=== PATIENT | female | born 1995 | race Hispanic/Latino ===

== ENCOUNTER 2017-10-11 11:08 | Emergency (ER) | payer SELFPAY, OTHER ==
[2017-10-11 12:57] LABS: Urine Blood TRACE (NEG); Urine Glucose NEGATIVE (NEG); Urine Protein NEGATIVE (NEG); Urine Specific Gravity 1.025 (1.005-1.030); Urine pH 6.5 (5.0-7.0)
[2017-10-11 13:00] LABS: Absolute Lymphocytes (CBC) 2.3 K/uL (0.7-4.9); Absolute Monocytes 0.5 K/uL (0.1-1.3); Absolute Neutrophil 4.2 K/uL (1.8-8.0); Basophils % 0.7 % (0-1.3); Eosinophils % 1.3 % (0-4.4); Hematocrit 39.2 % (36.0-45.0); Lymphocytes % 31.8 % (15.3-44.8); MCH 29.9 pg (27.0-35.0); MCV 90.7 fL (80-100); MPV 8.6 fL (7.6-11.3); Monocytes % 7.2 % (3.3-12.3); RBC Red Blood Cell Count 4.33 M/uL (3.86-4.86)
[2017-10-11 13:18] LABS: Bicarbonate 26 mEq/L (21-31); Glucose Level 84 mg/dL (65-120); Potassium 3.5 mEq/L (3.6-5.0); Sodium Level 135 mEq/L (135-145)
[2017-10-11 13:19] LABS: BUN Blood Urea Nitrogen 11 mg/dL (6-20)
--- NOTE | 2017-10-11 15:26 | RAD REPORT ---
EXAM DESCRIPTION: US - Transvaginal OB - 10/11/2017 1:40 pm CLINICAL HISTORY: Vaginal bleeding. COMPARISON: None. FINDINGS: A single gestational sac is seen within the uterus. Mean sac diameter is 8 mm correspondin g to 5 weeks 3 days gestational age. The sac is oblong. No yolk sac or embryo is seen. Both ovaries are normal in size, shape and echotexture with normal blood flow. IMPRESSION: Tyler gestational sac is present in the fundal endometrium. No yolk sac or pole i s seen.This may still represent a normal early IUP, follow-up study would be recommended in 10-12 day s.
--- NOTE | 2017-10-11 15:30 | EDPHYS ---
Physician Documentation [facility] Name: Evy Bahena Age: 21 yrs Sex: Female : 1995 Arrival Date: 10/11/2017 Time: 11:10 Bed 23 Private MD: ED Physician Nir Adler HPI: 10/11 12:47 This 21 yrs old Female presents to ER via Ambulatory with complaints of VAG rn BLEEDING AND CRAMPS;4-10 WKS PG. 12:47 The patient presents to the emergency department with vaginal bleeding. The estimated rn gestational age is 4 weeks. course: care: none. Associated signs and symptoms: Pertinent positives: vaginal bleeding. The patient has not experienced similar symptoms in the past. 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 - Family history:: not pertinent. - Hospitalizations: : No recent hospitalization is reported. ROS: 12:47 Constitutional: Negative for fever, chills, and weight loss, Eyes: Negative for injury, rn pain, redness, and discharge, Neck: Negative for injury, pain, and swelling, Cardiovascular: Negative for chest pain, palpitations, and edema, Respiratory: Negative for shortness of breath, cough, wheezing, and pleuritic chest pain, Abdomen/GI: Negative for nausea, vomiting, diarrhea, and constipation, : + vaginal bleeding MS/Extremity: Negative for injury and deformity, Skin: Negative for injury, rash, and discoloration, Neuro: Negative for headache, weakness, numbness, tingling, and seizure. Exam: 12:47 Constitutional: This is a well developed, well nourished patient who is awake, alert, rn and in no acute distress. Abdomen/GI: Soft, non-tender, with normal bowel sounds. No distension or tympany. No guarding or rebound. No evidence of tenderness throughout. Vital Signs: 11:44 BP 123 / 78; Pulse 79; Resp 18; Temp 97.8; Pulse Ox 99% on R/A; Weight 70.31 kg; Height ph 5 ft. 3 in. (160.02 cm); Pain 7/10; 13:30 BP 113 / 71; Pulse 69; Resp 18; Pulse Ox 99% on R/A; aj1 14:30 BP 117 / 62; Pulse 72; Resp 18; Pulse Ox 99% ; aj1 11:44 Body Mass Index 27.46 (70.31 kg, 160.02 cm) ph MDM: 12:20 Patient medically screened. rn 15:29 Differential diagnosis: ectopic . Data reviewed: vital signs, nurses notes, corn grinder test result(s), radiologic studies, ultrasound, and as a result, I will discharge patient. Counseling: I had a detailed discussion with the patient and/or guardian regarding: the historical points, exam findings, and any diagnostic results supporting the discharge/admit diagnosis, lab results, radiology results, the need for outpatient follow up, to return to the emergency department if symptoms worsen or persist or if there are any questions or concerns that arise at home. Special discussion: I discussed with the patient/guardian in detail that at this point there is no indication for admission to the hospital. It is understood, however, that if the symptoms persist or worsen the patient needs to return immediately for re-evaluation. Based on the history and exam findings, there is no indication for further emergent testing or inpatient evaluation. I discussed with the patient/guardian the need to see the OB Gyne specialist for further evaluation of the symptoms. ED course: Beta 9000, + GS in uterus, but no pole or HR, recommend repeat beta and u/s. . 10/11 12:29 Order name: Quantitative Hcg; Complete Time: 13:51 rn 10/11 12:29 Order name: Abo/rh Typing; Complete Time: 13:51 rn 10/11 12:29 Order name: Basic Metabolic Panel; Complete Time: 13:51 rn 10/11 12:29 Order name: CBC with Diff; Complete Time: 13:51 rn 10/11 12:47 Order name: Urine Dipstick--Ancillary (enter results); Complete Time: 13:51 bd 10/11 12:47 Order name: Urine --Ancillary (enter results); Complete Time: 13:51 bd 10/11 12:29 Order name: Urine Test (obtain specimen); Complete Time: 12:43 rn 10/11 12:29 Order name: IV Saline Lock; Complete Time: 12:54 rn 10/11 12:29 Order name: Labs collected and sent; Complete Time: 12:54 rn 10/11 12:29 Order name: NPO; Complete Time: 12:43 rn 10/11 12:29 Order name: Urine Dipstick-Ancillary (obtain specimen); Complete Time: 12:43 rn 10/11 12:29 Order name: US Transvaginal Ob; Complete Time: 15:29 rn 10/11 14:17 Order name: ABO/RH no charge; Complete Time: 14:32 EDMS Administered Medications: No medications were administered Disposition: 10/11/17 15:30 Discharged to Home. Impression: Other specified abnormal uterine and vaginal bleeding, related conditions, unspecified, first trimester. - Condition is Stable. - Discharge Instructions: Threatened Miscarriage. - Medication Reconciliation Form, Thank You Letter, Antibiotic Education, Prescription Opioid Use, Family Work Release form. - Follow up: Private Physician; When: As needed; Reason: Recheck today's complaints, Re-evaluation by your physician. - Problem is new. - Symptoms have improved. Signatures: Dispatcher [employer] EDMS Nir Adler MD MD rn Calderon, Audri, RN RN aa5 Elidia Luna RN RN ph Corrections: (The following items were deleted from the chart) 15:59 15:30 10/11/2017 15:30 Discharged to Home. Impression: Other specified abnormal uterine aa5 and vaginal bleeding; related conditions, unspecified, first trimester. Condition is Stable. Forms are Medication Reconciliation Form, Thank You Letter, Antibiotic Education, Prescription Opioid Use. Follow up: Private Physician; When: As needed; Reason: Recheck today's complaints, Re-evaluation by your physician. Problem is new. Symptoms have improved. rn
--- NOTE | 2017-10-11 15:30 | ER ---
Nurse's Notes [facility] Name: Evy Bahena Age: 21 yrs Sex: Female : 1995 Arrival Date: 10/11/2017 Time: 11:10 Bed 23 Private MD: Diagnosis: Other specified abnormal uterine and vaginal bleeding; related conditions, unspecified, first trimester Presentation: 10/11 11:42 Presenting complaint: Patient states: " I'm and I've been spotting off and on ph for about a week and I've been cramping for about 2 weeks." Pt denies bleeding today, reports cramps in suprapubic area, LMP 08/25. Transition of care: patient was not received from another setting of care. Onset of symptoms was October 11, 2017. Initial Sepsis Screen: Does the patient meet any 2 criteria? No. Patient's initial sepsis screen is negative. Does the patient have a suspected source of infection? No. Patient's initial sepsis screen is negative. Care prior to arrival: None. 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 - Family history:: not pertinent. - Hospitalizations: : No recent hospitalization is reported. Screenin:22 Abuse screen: Denies threats or abuse. Denies injuries from another. Nutritional aj1 screening: No deficits noted. Tuberculosis screening: No symptoms or risk factors identified. Assessment: 12:22 General: Appears in no apparent distress. uncomfortable, Behavior is calm, cooperative, aj1 appropriate for age. Pain: Complains of pain in suprapubic area Pain does not radiate. Pain currently is 8 out of 10 on a pain scale. Quality of pain is described as crampy, Pain began 2 weeks ago Is intermittent, Alleviated by nothing. Aggravated by nothing. Neuro: Level of Consciousness is awake, alert, obeys commands, Oriented to person, place, time, situation, Speech is normal, Facial symmetry appears normal. Cardiovascular: Patient's skin is warm and dry. Respiratory: Airway is patent Respiratory effort is even, unlabored, Respiratory pattern is regular, symmetrical. GI: Abdomen is non-distended. : Reports vaginal bleeding that is light flow, last week that has now resolved. Patient complains of cramping at this time. EENT: No signs and/or symptoms were reported regarding the EENT system. Derm: No signs and/or symptoms reported regarding the dermatologic system. Skin is pink, warm \\T\\ dry. normal. Musculoskeletal: No signs and/or symptoms reported regarding the musculoskeletal system. Circulation, motion, and sensation intact. 13:30 Reassessment: Patient appears in no apparent distress at this time. No changes from aj1 previously documented assessment. Patient and/or family updated on plan of care and expected duration. Pain level reassessed. Patient is alert, oriented x 3, equal unlabored respirations, skin warm/dry/pink. 14:30 Reassessment: Patient appears in no apparent distress at this time. No changes from aj1 previously documented assessment. Patient and/or family updated on plan of care and expected duration. Pain level reassessed. Patient is alert, oriented x 3, equal unlabored respirations, skin warm/dry/pink. 15:55 Reassessment: Patient is alert, oriented x 3, equal unlabored respirations, skin aa5 warm/dry/pink. Vital Signs: 11:44 BP 123 / 78; Pulse 79; Resp 18; Temp 97.8; Pulse Ox 99% on R/A; Weight 70.31 kg; Height ph 5 ft. 3 in. (160.02 cm); Pain 7/10; 13:30 BP 113 / 71; Pulse 69; Resp 18; Pulse Ox 99% on R/A; aj1 14:30 BP 117 / 62; Pulse 72; Resp 18; Pulse Ox 99% ; aj1 11:44 Body Mass Index 27.46 (70.31 kg, 160.02 cm) ph ED Course: 11:10 Patient arrived in ED. sb2 11:44 Triage completed. ph 11:45 Arm band placed on. ph 12:19 Nir Adler MD is Attending Physician. rn 12:19 Bc Bone PA is PHCP. cp 12:20 Bc Mcconnell MD is Attending Physician. cp 12:20 Attending Physician role handed off by Bc Mcconnell MD rn 12:20 Nir Adler MD is Attending Physician. rn 12:22 Thelma Dodge RN is Primary Nurse. aj1 12:22 Patient has correct armband on for positive identification. Bed in low position. Call aj1 light in reach. Side rails up X 1. 12:22 No provider procedures requiring assistance completed. aj1 12:55 Inserted saline lock: 20 gauge in right antecubital area, using aseptic technique. aj1 Blood collected. 13:40 US Transvaginal Ob In Process Unspecified. EDMS 13:43 Ultrasound completed. Patient tolerated well. hr 14:45 Report given to YINA Barriga. aj1 15:55 IV discontinued, intact, bleeding controlled, No redness/swelling at site. Pressure aa5 dressing applied. Administered Medications: No medications were administered Outcome: 15:30 Discharge ordered by MD. rn 15:55 Discharged to home ambulatory, with significant other. aa5 15:55 Condition: stable 15:55 Discharge instructions given to patient, significant other, Instructed on discharge instructions, follow up and referral plans. Demonstrated understanding of instructions, follow-up care. 15:59 Patient left the ED. aa5 Signatures: Dispatcher [employer] EDMS Thelma Dodge, RN RN aj1 Kaylyn Matias hr Nir Adler MD MD rn Calderon, Audri, RN RN aa5 Elidia Luna RN RN Bc Aleman, PA PA cp Addie Nicole sb2
== END 2017-10-11 15:59 | disposition home or self-care (01) ==
LOC: ER 11:08
DX: O46.91 Antepartum hemorrhage, unspecified, first trimester (principal); Z3A.01 Less than 8 weeks gestation of pregnancy
CPT/HCPCS: 36415; 76817; 80048; 81003; 81025; 84702; 85025; 86900; 86901; 99283

== ENCOUNTER 2018-08-21 06:37 | Emergency (ER) | payer OTHER, SELFPAY ==
--- OUTSIDE RECORDS SUMMARY | 2018-08-21 06:40 | XMS REPORT ---
:1995 Author Organization [employer] Care Team Providers Name Role Phone Mary Segura Provider Role Unavailable Allergies No Known Allergies Problems Problem Type Condition Code Onset Dates Condition Status Problem Vagina bleeding N93.9 Active Medications No Known Medications Results No Known Results Summary Purpose [employer] Submission
--- OUTSIDE RECORDS SUMMARY | 2018-08-21 06:40 | XMS REPORT ---
:1995 Author Organization [employer] Care Team Providers Name Role Phone Mary Segura Provider Role Unavailable Allergies, Adverse Reactions, Alerts Substance Reaction Event Type N.K.D.A. Info Not Available Non Drug Allergy Problems Problem Type Condition Code Onset Dates Condition Status Problem Encounter to determine O36.80X0 Active viability of , single or unspecified fetus Problem Vagina bleeding N93.9 Active Problem Possible , not confirmed Z32.00 Active Assessment Encounter to determine O36.80X0 Active viability of , single or unspecified fetus Assessment Possible , not confirmed Z32.00 Active Assessment Vagina bleeding N93.9 Active Medications No Known Medications Results Name Result Date Reference Range Unit Abnormality Flag URINALYSIS AUTO W/O SCOPE (08110) ----NIT neg 20171027 ----URO 1.0 20171027 ----PROTEIN neg 20171027 ----pH 7.0 20171027 ----BLO TRACE 20171027 ----GLUCOSE neg 20171027 ----SANA neg 20171027 ----BILIRUBIN neg 20171027 ----KETONES TRACE 20171027 ----SPECIFIC GRAVITY 1.025 20171027 Summary Purpose [employer] Submission
--- OUTSIDE RECORDS SUMMARY | 2018-08-21 06:40 | XMS REPORT ---
:1995 Author Organization [employer] Care Team Providers Name Role Phone Mary Segura Provider Role Unavailable Allergies, Adverse Reactions, Alerts Substance Reaction Event Type N.K.D.A. Info Not Available Non Drug Allergy Problems Problem Type Condition Code Onset Dates Condition Status Assessment Vagina bleeding N93.9 Active Assessment Possible Z32.00 Active Problem Vagina bleeding N93.9 Active Medications No Known Medications Results No Known Results Summary Purpose [employer] Submission
--- OUTSIDE RECORDS SUMMARY | 2018-08-21 06:40 | XMS REPORT | Clinical Summary ---
:1995 Author Organization [place] [employer] Address [address] [place] [address] Care Team Providers Name Role Phone Asked, No Pcp Primary Care Provider Unavailable Allergies No Known Allergies Medications Medication Sig Dispensed Refills Start Date End Date Status acetaminophen-codeine Take 1-2 15 tablet 0 11/12/2017 11/15/2017 (TYLENOL WITH CODEINE tablets by #3) 300-30 mg per mouth every 6 tablet (six) hours as needed for moderate pain for up to 3 days. ondansetron ODT Take 1 tablet 15 tablet 0 11/12/2017 12/12/2017 (ZOFRAN ODT) 4 MG (4 mg total) by disintegrating tablet mouth every 8 (eight) hours as needed for nausea or vomiting for up to 30 days. Active Problems Estimated Date of Delivery Comments Yes 06/08/2018 No additional problems on file Encounters Date Type Specialty Care Team Description 11/12/2017 Emergency Emergency Medicine Rohith Villarreal, MELVIN ( spontaneous MD ) (Primary Dx) after 08/20/2017 Social History Tobacco Use Types Packs/Day Years Used Date Never Smoker Smokeless Tobacco: Never Used Alcohol Use Drinks/Week oz/Week Comments No Estimated Date of Delivery Comments Yes 06/08/2018 Sex Assigned at Date Recorded Not on file Job Start Date Occupation Industry Not on file Not on file Not on file Travel History Travel Start Travel End No recent travel history available. Last Filed Vital Signs Vital Sign Reading Time Taken Blood Pressure 119/72 11/12/2017 11:15 PM CDT Pulse 63 11/12/2017 11:15 PM CDT Temperature 36.9 C (98.5 F) 11/12/2017 7:52 PM CDT Respiratory Rate 18 11/12/2017 11:15 PM CDT Oxygen Saturation 100% 11/12/2017 11:15 PM CDT Inhaled Oxygen Concentration - - Weight 69.4 kg (153 lb) 11/12/2017 7:52 PM CDT Height 160 cm (5' 3") 11/12/2017 7:52 PM CDT Body Mass Index 27.1 11/12/2017 7:52 PM CDT Plan of Treatment Health Maintenance Due Date Last Done Comments CHLAMYDIA SCREENING 2009 CERVICAL CANCER SCREENING 2014 INFLUENZA VACCINE 12/28/2017 Procedures Procedure Name Priority Date/Time Associated Comments Diagnosis US STAT 11/12/2017 11:00 Results for this TRANSVAGINAL PM CDT procedure are in the results section. US SINGLE STAT 11/12/2017 11:00 Results for this LESS THAN 14 WEEKS PM CDT procedure are in the results section. ZZESTIMATED GFR STAT 11/12/2017 8:28 Results for this PM CDT procedure are in the results section. RH TYPE STAT 11/12/2017 8:28 Results for this PM CDT procedure are in the results section. HCG QUANTITATIVE, STAT 11/12/2017 8:28 Results for this SERUM PM CDT procedure are in the results section. LIPASE LEVEL STAT 11/12/2017 8:28 Results for this PM CDT procedure are in the results section. COMPREHENSIVE STAT 11/12/2017 8:28 Results for this METABOLIC PANEL PM CDT procedure are in the results section. CBC WITH PLATELET AND STAT 11/12/2017 8:28 Results for this DIFFERENTIAL PM CDT procedure are in the results section. after 08/20/2017 Results US Transvaginal (11/12/2017 11:00 PM CDT) Narrative Performed At EXAM: US SINGLE LESS THAN 14 WEEKS, US TRANSVAGINAL [facility] CLINICAL INDICATIONS:vaginal bleed8 wk TECHNIQUE: Pelvic ultrasound performed.Transabdominal and transvaginal images are obtained. COMPARISON: None. IMPRESSION: No definite intrauterine is visualized. Gestational sac, yolk sac, and pole are not seen. No suspicious adnexal masses. Uterus measures 9.5 x 5.8 x 4.9 cm. Endometrial stripe measures 2.06 cm. No definite abnormal endometrial vascularity is noted. Right and left ovaries are within normal limits. Right ovary measures 1.36 cm x 2.34 cm x 1.81 cm and left ovary measures 1.67 cm x 2.55 cm x 1.41 cm. Left ovarian corpus luteum measuring 1.5 cm. Small free pelvic fluid, may be physiologic. [facility]-[id number] Procedure Note Interface, Radiology Results - 11/12/2017 11:07 PM CDT EXAM: US SINGLE LESS THAN 14 WEEKS, US TRANSVAGINAL CLINICAL INDICATIONS: vaginal bleed 8 wk TECHNIQUE: Pelvic ultrasound performed. Transabdominal and transvaginal images are obtained. COMPARISON: None. IMPRESSION: No definite intrauterine is visualized. Gestational sac, yolk sac, and pole are not seen. No suspicious adnexal masses. Uterus measures 9.5 x 5.8 x 4.9 cm. Endometrial stripe measures 2.06 cm. No definite abnormal endometrial vascularity is noted. Right and left ovaries are within normal limits. Right ovary measures 1.36 cm x 2.34 cm x 1.81 cm and left ovary measures 1.67 cm x 2.55 cm x 1.41 cm. Left ovarian corpus luteum measuring 1.5 cm. Small free pelvic fluid, may be physiologic. [facility]-[id number] Performing Organization Address City/State/Zipcode Phone Number [facility] [address] [place] [address] US Single Less Than 14 Weeks (11/12/2017 11:00 PM CDT) Narrative Performed At EXAM: US SINGLE LESS THAN 14 WEEKS, [facility]ICAL INDICATIONS:vaginal bleed8 wk TECHNIQUE: Pelvic ultrasound performed.Transabdominal and transvaginal images are obtained. COMPARISON: None. IMPRESSION: No definite intrauterine is visualized. Gestational sac, yolk sac, and pole are not seen. No suspicious adnexal masses. Uterus measures 9.5 x 5.8 x 4.9 cm. Endometrial stripe measures 2.06 cm. No definite abnormal endometrial vascularity is noted. Right and left ovaries are within normal limits. Right ovary measures 1.36 cm x 2.34 cm x 1.81 cm and left ovary measures 1.67 cm x 2.55 cm x 1.41 cm. Left ovarian corpus luteum measuring 1.5 cm. Small free pelvic fluid, may be physiologic. [facility]-[id number] Procedure Note Interface, Radiology Results - 11/12/2017 11:07 PM CDT EXAM: US SINGLE LESS THAN 14 WEEKS, US TRANSVAGINAL CLINICAL INDICATIONS: vaginal bleed 8 wk TECHNIQUE: Pelvic ultrasound performed. Transabdominal and transvaginal images are obtained. COMPARISON: None. IMPRESSION: No definite intrauterine is visualized. Gestational sac, yolk sac, and pole are not seen. No suspicious adnexal masses. Uterus measures 9.5 x 5.8 x 4.9 cm. Endometrial stripe measures 2.06 cm. No definite abnormal endometrial vascularity is noted. Right and left ovaries are within normal limits. Right ovary measures 1.36 cm x 2.34 cm x 1.81 cm and left ovary measures 1.67 cm x 2.55 cm x 1.41 cm. Left ovarian corpus luteum measuring 1.5 cm. Small free pelvic fluid, may be physiologic. [facility]-[id number] Performing Organization Address City/State/Zipcode Phone Number [facility] [address] [place] [address] RH type (11/12/2017 8:28 PM CDT) Rh type POS [facility] DEPARTMENT OF PATHOLOGY AND GENOMIC MEDICINE Specimen Blood Performing Organization Address City/[facility] Phone Number [facility] DEPARTMENT OF PATHOLOGY AND [address] [place] [address] [employer] [facility] Estimated GFR (11/12/2017 8:28 PM CDT) GFR Non Af Amer >90 mL/min/1.73 m2 [facility] DEPARTMENT OF PATHOLOGY AND GENOMIC MEDICINE GFR Af Amer >90 mL/min/1.73 m2 [facility] DEPARTMENT OF Comment: PATHOLOGY AND GENOMIC Chronic kidney disease: <60 mL/min/1.73m2 MEDICINE Kidney failure: <15 mL/min/1.73m2 The estimated GFR is calculated from the IDMS-traceable Modification of Diet in Renal Disease Equation. The accuracy of the calculation is poor when the creatinine is normal. Calculated values >90 mL/min/1.73m2 are not reported. This equation has not been validated in children (<18 years), women, the elderly (>70 years), or ethnic groups other than Caucasians and Americans. Specimen Plasma specimen Performing Organization Address City/[facility]/Zipcode Phone Number [facility] DEPARTMENT OF PATHOLOGY AND [address] [place] [address] [employer] [facility] CBC with platelet and differential (11/12/2017 8:28 PM CDT) WBC 9.3 4.2 - 11.0 k/uL [facility] DEPARTMENT OF PATHOLOGY AND GENOMIC MEDICINE RBC 4.00 (L) 4.04 - 5.86 m/uL [facility] DEPARTMENT OF PATHOLOGY AND GENOMIC MEDICINE HGB 12.2 11.5 - 15.3 g/dL [facility] DEPARTMENT OF PATHOLOGY AND GENOMIC MEDICINE HCT 37.0 34.0 - 45.0 % [facility] DEPARTMENT OF PATHOLOGY AND GENOMIC MEDICINE MCV 92.5 80.0 - 98.0 fL [facility] DEPARTMENT OF PATHOLOGY AND GENOMIC MEDICINE MCH 30.5 27.0 - 34.0 pg [facility] DEPARTMENT OF PATHOLOGY AND GENOMIC MEDICINE MCHC 33.0 31.5 - 36.5 g/dL [facility] DEPARTMENT OF PATHOLOGY AND GENOMIC MEDICINE RDW - SD 45.6 37.0 - 51.0 fL [facility] DEPARTMENT OF PATHOLOGY AND GENOMIC MEDICINE MPV 10.4 7.4 - 10.4 fL [facility] DEPARTMENT OF PATHOLOGY AND GENOMIC MEDICINE Platelet count 306 150 - 400 k/uL [facility] DEPARTMENT OF PATHOLOGY AND GENOMIC MEDICINE Nucleated RBC 0.00 /100 WBC [facility] DEPARTMENT OF PATHOLOGY AND GENOMIC MEDICINE Neutrophils 73.4 (H) 36.0 - 66.0 % [facility] DEPARTMENT OF PATHOLOGY AND GENOMIC MEDICINE Lymphocytes 19.8 (L) 24.0 - 44.0 % [facility] DEPARTMENT OF PATHOLOGY AND GENOMIC MEDICINE Monocytes 4.9 0.0 - 6.0 % [facility] DEPARTMENT OF PATHOLOGY AND GENOMIC MEDICINE Eosinophils 1.3 0.0 - 6.0 % [facility] DEPARTMENT OF PATHOLOGY AND GENOMIC MEDICINE Basophils 0.3 0.0 - 1.2 % [facility] DEPARTMENT OF PATHOLOGY AND GENOMIC MEDICINE Immature granulocytes 0.3 0.0 - 1.0 % [facility] DEPARTMENT OF PATHOLOGY AND GENOMIC MEDICINE Specimen Blood Performing Organization Address City/State/Zipcode Phone Number [facility] DEPARTMENT OF PATHOLOGY AND [facility] [place] [address] [facility] hCG quantitative, serum (11/12/2017 8:28 PM CDT) hCG quantitative, serum 7,810 (H) 0 - 5 mIU/mL [facility] DEPARTMENT OF Comment: PATHOLOGY AND GENOMIC EXPECTED RANGE: MEDICINE >25 mIU/mL seen in . For values 1-24: Indeterminate result.Recommend retesting in 72 hours. HCG doubling time for normal is about 2.5 days. Approx Gestational Age Approx. HCG Conc. (mIU/mL) 0-2 weeks 0-500 2-3 weeks 100- 1000 3-4 weeks 500- 6000 1-3 [id number]- 200,000 2nd Trimester 5000-50, 000 3rd Trimester 5000-50, 000 Specimen Blood Performing Organization Address City/State/Zipcode Phone Number [facility] DEPARTMENT OF PATHOLOGY AND [facility] [place], [place] [id number] [place] [address] Lipase level (11/12/2017 8:28 PM CDT) Lipase 212 65 - 230 U/L [facility] DEPARTMENT OF PATHOLOGY AND GENOMIC MEDICINE Specimen Plasma specimen Performing Organization Address City/[facility]ode Phone Number [facility] DEPARTMENT OF PATHOLOGY AND [address] [place] [address] [place], [place] [id number] [place] [address] Comprehensive metabolic panel (11/12/2017 8:28 PM CDT) Sodium 140 135 - 150 mEq/L [facility] DEPARTMENT OF PATHOLOGY AND GENOMIC MEDICINE Potassium 4.0 3.5 - 5.0 mEq/L [facility] DEPARTMENT OF PATHOLOGY AND GENOMIC MEDICINE Chloride 106 100 - 109 mEq/L [facility] DEPARTMENT OF PATHOLOGY AND GENOMIC MEDICINE CO2 28 24 - 32 mmol/L [facility] DEPARTMENT OF PATHOLOGY AND GENOMIC MEDICINE Anion gap 6@ANIO (L) 7 - 15 mEq/L [facility] DEPARTMENT OF PATHOLOGY AND GENOMIC MEDICINE BUN 14 7 - 18 mg/dL [facility] DEPARTMENT OF PATHOLOGY AND GENOMIC MEDICINE Creatinine 0.6 (L) 0.8 - 1.5 mg/dL [facility] DEPARTMENT OF PATHOLOGY AND GENOMIC MEDICINE Glucose 81 65 - 100 mg/dL [facility] DEPARTMENT OF PATHOLOGY AND GENOMIC MEDICINE Calcium 9.2 8.6 - 10.7 mg/dL [facility] DEPARTMENT OF PATHOLOGY AND GENOMIC MEDICINE Protein 8.4 (H) 6.3 - 8.2 g/dL [facility] DEPARTMENT OF PATHOLOGY AND GENOMIC MEDICINE Albumin 4.4 3.2 - 5.0 g/dL [facility] DEPARTMENT OF PATHOLOGY AND GENOMIC MEDICINE A/G ratio 1.1 0.7 - 3.8 [facility] DEPARTMENT OF PATHOLOGY AND GENOMIC MEDICINE Alkaline phosphatase 74 30 - 120 U/L [facility] DEPARTMENT OF PATHOLOGY AND GENOMIC MEDICINE AST 13 (L) 15 - 37 U/L [facility] DEPARTMENT OF PATHOLOGY AND GENOMIC MEDICINE ALT 15 (L) 30 - 65 U/L [facility] DEPARTMENT OF PATHOLOGY AND GENOMIC MEDICINE Total bilirubin 0.3 0.2 - 1.2 mg/dL [facility] DEPARTMENT OF PATHOLOGY AND GENOMIC MEDICINE Specimen Plasma specimen Performing Organization Address City/State/Zipcode Phone Number [facility] DEPARTMENT OF PATHOLOGY AND [address] [place] [address] GENOMIC MEDICINE after 08/20/2017 Advance Directives Patient has advance care planning documents on file. For more information, please contact:Oleg Austin[address] [place] [address]
[2018-08-21] MEDS ORDERED: HYDROCODONE/APAP 5/325 MG TAB ONE (07:12)
--- NOTE | 2018-08-21 07:42 | ER ---
Nurse's Notes [facility] Name: Evy Bahena Age: 22 yrs Sex: Female : 1995 Arrival Date: 08/21/2018 Time: 06:38 Bed 20 Private MD: Diagnosis: Sprain of foot Presentation: 08/21 06:42 Presenting complaint: Patient states: she was stepping down one step at her house and bb her left foot gave out and she fell injuring left foot, she thought the pain would go away but it got worse and now it is swollen. Transition of care: patient was not received from another setting of care. Onset of symptoms was August 20, 2018. Risk Assessment: Do you want to hurt yourself or someone else? Patient reports no desire to harm self or others. Initial Sepsis Screen: Does the patient meet any 2 criteria? No. Patient's initial sepsis screen is negative. Does the patient have a suspected source of infection? No. Patient's initial sepsis screen is negative. Care prior to arrival: None. 06:42 Method Of Arrival: Ambulatory bb 06:42 Acuity: JESSICA 4 bb Triage Assessment: 06:44 General: Appears in no apparent distress. uncomfortable, Behavior is calm. Pain: bb Complains of pain in left foot Pain currently is 10 out of 10 on a pain scale. Neuro: Level of Consciousness is awake, alert, obeys commands, Oriented to person, place, time, situation. Cardiovascular: No deficits noted. Respiratory: Respiratory effort is even, unlabored, Respiratory pattern is regular. GI: No signs and/or symptoms were reported involving the gastrointestinal system. Derm: Skin is pink, warm \T\ dry. Musculoskeletal: Capillary refill < 3 seconds, Swelling present in left foot Reports pain in left foot. 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 - Social history:: Smoking status: Patient/guardian denies using tobacco. - Ebola Screening: : No symptoms or risks identified at this time. Screenin:47 Abuse screen: Denies threats or abuse. Nutritional screening: No deficits noted. bb Tuberculosis screening: No symptoms or risk factors identified. Fall Risk None identified. Assessment: 06:47 Reassessment: No changes from previously documented assessment. see triage assessment. bb 07:00 General: Appears in no apparent distress. uncomfortable, Behavior is calm, cooperative, hj appropriate for age. Pain: Complains of pain in left foot. Neuro: Level of Consciousness is awake, alert, obeys commands, Oriented to person, place, time, situation, Appropriate for age. Cardiovascular: Capillary refill < 3 seconds Patient's skin is warm and dry. Respiratory: Airway is patent Respiratory effort is even, unlabored, Respiratory pattern is regular, symmetrical. GI: No signs and/or symptoms were reported involving the gastrointestinal system. : No signs and/or symptoms were reported regarding the genitourinary system. EENT: No signs and/or symptoms were reported regarding the EENT system. Derm: No signs and/or symptoms reported regarding the dermatologic system. Musculoskeletal: Reports pain in left foot. Vital Signs: 06:44 BP 107 / 91; Pulse 81; Resp 16 S; Temp 98.2(O); Pulse Ox 99% ; Weight 77.11 kg (R); bb Height 5 ft. 3 in. (160.02 cm) (R); Pain 10/10; 06:44 Body Mass Index 30.11 (77.11 kg, 160.02 cm) bb ED Course: 06:38 Patient arrived in ED. es 06:44 Triage completed. bb 06:44 Arm band placed on Patient placed in an exam room, on a stretcher, on pulse oximetry. bb Family accompanied patient. 06:47 Patient has correct armband on for positive identification. Bed in low position. Call bb light in reach. Adult w/ patient. 06:50 Raquel Bo FNP-C is PHCP. snw 06:50 Kong Wilson MD is Attending Physician. snw 06:54 Affected limb iced. Affected limb elevated. bb 07:00 Report given to YINA Lambert. cc3 07:07 Fausto Howard RN is Primary Nurse. hj 07:31 X-ray completed. Portable x-ray completed in exam room. Patient tolerated procedure ml well. 07:33 XRAY Foot LEFT 3 View In Process Unspecified. EDMS 07:41 Hammond, Jaylan, MD is Referral Physician. sn 08:04 No provider procedures requiring assistance completed. Patient did not have IV access hj during this emergency room visit. Administered Medications: 07:00 Drug: [place] 5 mg-325 mg 1 tabs Route: PO; hj 07:08 Follow up: Response: No adverse reaction; Pain is decreased hj Outcome: 07:41 Discharge ordered by MD. snw 08:04 Discharged to home ambulatory, with crutches, with family. 08:04 Condition: stable 08:04 Discharge instructions given to patient, family, Instructed on discharge instructions, follow up and referral plans. medication usage, Demonstrated understanding of instructions, follow-up care, medications, Prescriptions given X 1. 08:05 Patient left the ED. Signatures: Dispatcher [employer] [facility] Raquel Bo, PLANISHING PRESS OPERATOR-C PLANISHING PRESS OPERATOR-Csnw Mikki Bhat Brenda, Ariana Bassett RN, Henry, RN RN Clarice Frost 3
--- NOTE | 2018-08-21 07:43 | EDPHYS ---
Physician Documentation [facility] Name: Evy Bahena Age: 22 yrs Sex: Female : 1995 Arrival Date: 08/21/2018 Time: 06:38 Bed 20 Private MD: ED Physician Kong Wilson HPI: 08/21 06:57 This 22 yrs old Female presents to ER via Ambulatory with complaints of Fall snw Injury, Foot Injury. 06:57 Details of fall: The patient fell from an upright position, while walking. Onset: The snw symptoms/episode began/occurred suddenly, last night. Associated injuries: The patient sustained left foot, contusion, ecchymosis, painful injury, swelling. Severity of symptoms: At their worst the symptoms were moderate. The patient has not experienced similar symptoms in the past. It is unknown whether or not the patient has recently seen a physician. 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 - Social history:: Smoking status: Patient/guardian denies using tobacco. - Ebola Screening: : No symptoms or risks identified at this time. ROS: 06:54 Constitutional: Negative for fever, chills, and weight loss, Eyes: Negative for injury, snw pain, redness, and discharge, ENT: Negative for injury, pain, and discharge, Neck: Negative for injury, pain, and swelling, Cardiovascular: Negative for chest pain, palpitations, and edema, Respiratory: Negative for shortness of breath, cough, wheezing, and pleuritic chest pain, Abdomen/GI: Negative for abdominal pain, nausea, vomiting, diarrhea, and constipation, Back: Negative for injury and pain, : Negative for injury, bleeding, discharge, and swelling, Skin: Negative for injury, rash, and discoloration, Neuro: Negative for headache, weakness, numbness, tingling, and seizure, Psych: Negative for depression, anxiety, suicide ideation, homicidal ideation, and hallucinations. 06:54 MS/extremity: Positive for injury or acute deformity, contusion, pain, swelling, tenderness, of the left foot. Exam: 06:54 Constitutional: This is a well developed, well nourished patient who is awake, alert, snw and in no acute distress. Head/Face: Normocephalic, atraumatic. Eyes: Pupils equal round and reactive to light, extra-ocular motions intact. Lids and lashes normal. Conjunctiva and sclera are non-icteric and not injected. Cornea within normal limits. Periorbital areas with no swelling, redness, or edema. ENT: Nares patent. No nasal discharge, no septal abnormalities noted. Tympanic membranes are normal and external auditory canals are clear. Oropharynx with no redness, swelling, or masses, exudates, or evidence of obstruction, uvula midline. Mucous membranes moist. Neck: Trachea midline, no thyromegaly or masses palpated, and no cervical lymphadenopathy. Supple, full range of motion without nuchal rigidity, or vertebral point tenderness. No Meningismus. Chest/axilla: Normal chest wall appearance and motion. Nontender with no deformity. No lesions are appreciated. Cardiovascular: Regular rate and rhythm with a normal S1 and S2. No gallops, murmurs, or rubs. Normal PMI, no JVD. No pulse deficits. Respiratory: Lungs have equal breath sounds bilaterally, clear to auscultation and percussion. No rales, rhonchi or wheezes noted. No increased work of breathing, no retractions or nasal flaring. Abdomen/GI: Soft, non-tender, with normal bowel sounds. No distension or tympany. No guarding or rebound. No evidence of tenderness throughout. Back: No spinal tenderness. No costovertebral tenderness. Full range of motion. Skin: Warm, dry with normal turgor. Normal color with no rashes, no lesions, and no evidence of cellulitis. Neuro: Awake and alert, GCS 15, oriented to person, place, time, and situation. Cranial nerves II-XII grossly intact. Motor strength 5/5 in all extremities. Sensory grossly intact. Cerebellar exam normal. Normal gait. Psych: Awake, alert, with orientation to person, place and time. Behavior, mood, and affect are within normal limits. 06:54 Musculoskeletal/extremity: Extremities: grossly normal except: noted in the left foot: contusion, ecchymosis, swelling, tenderness, ROM: no acute changes, Circulation is intact in all extremities. Sensation intact. Vital Signs: 06:44 BP 107 / 91; Pulse 81; Resp 16 S; Temp 98.2(O); Pulse Ox 99% ; Weight 77.11 kg (R); bb Height 5 ft. 3 in. (160.02 cm) (R); Pain 10/10; 06:44 Body Mass Index 30.11 (77.11 kg, 160.02 cm) bb MDM: 06:50 Patient medically screened. snw 07:42 Data reviewed: vital signs, nurses notes. Data interpreted: Pulse oximetry: on room air snw is 99 %. Interpretation: normal. Counseling: I had a detailed discussion with the patient and/or guardian regarding: the historical points, exam findings, and any diagnostic results supporting the discharge/admit diagnosis, radiology results, the need for outpatient follow up, for definitive care, to return to the emergency department if symptoms worsen or persist or if there are any questions or concerns that arise at home. Special discussion: I have referred the patient to see his PCP for further evaluation of high blood pressure. Based on the history and exam findings, there is no indication for further emergent testing or inpatient evaluation. I discussed with the patient/guardian the need to see the orthopedic surgeon for further evaluation of the symptoms. I discussed with the patient/guardian the need to see the primary care provider for further evaluation of the symptoms. 08/21 06:47 Order name: XRAY Foot LEFT 3 View bb 08/21 06:54 Order name: PO challenge; Complete Time: 06:57 snw 08/21 07:40 Order name: Misc. Order: Walking boot Left; Complete Time: 08:03 snw Administered Medications: 07:00 Drug: [place] 5 mg-325 mg 1 tabs Route: PO; hj 07:08 Follow up: Response: No adverse reaction; Pain is decreased hj Disposition: 08/21/18 07:41 Discharged to Home. Impression: Sprain of foot. - Condition is Stable. - Discharge Instructions: Elastic Bandage and RICE, Foot Sprain. - Prescriptions for Diclofenac Sodium 75 mg Oral Tablet Sustained Release - take 1 tablet by ORAL route 2 times per day; 30 tablet. - Work release form, Medication Reconciliation Form, Thank You Letter, Antibiotic Education, Prescription Opioid Use form. - Follow up: Emergency Department; When: As needed; Reason: Worsening of condition. Follow up: Jaylan Lima MD; When: 1 - 2 days; Reason: Recheck today's complaints, Continuance of care, Re-evaluation by your physician. Signatures: Dispatcher [employer] EDRaquel Mancera, CAIN-C CORPORATE INVESTIGATOR-Csnw Nicki Mendez RN RN Fausto Howard RN RN hj Corrections: (The following items were deleted from the chart) 08:05 07:41 08/21/2018 07:41 Discharged to Home. Impression: Sprain of foot. Condition is hj Stable. Forms are Medication Reconciliation Form, Thank You Letter, Antibiotic Education, Prescription Opioid Use. Follow up: Emergency Department; When: As needed; Reason: Worsening of condition. Follow up: Jaylan Lima; When: 1 - 2 days; Reason: Recheck today's complaints, Continuance of care, Re-evaluation by your physician. snw
--- NOTE | 2018-08-21 08:44 | RAD REPORT ---
EXAM DESCRIPTION: RAD - Foot Left 3 View - 08/21/2018 7:36 am CLINICAL HISTORY: Fall, foot pain, twisting injury COMPARISON: None. FINDINGS: Transverse fracture is present at the base of the fifth metatarsal. No significant distrac tion or angulation deformity. No fracture, dislocation or periosteal reaction elsewhere in the foot. No air or foreign body in the soft tissues. IMPRESSION: Fracture base of the fifth metatarsal. No significant distraction or angulation deformit y.
== END 2018-08-21 08:05 | disposition home or self-care (01) ==
LOC: ER 06:37
DX: S93.602A Unspecified sprain of left foot, initial encounter (principal); W17.89XA Other fall from one level to another, initial encounter; Y93.9 Activity, unspecified; Y92.9 Unspecified place or not applicable
CPT/HCPCS: 99284

== ENCOUNTER 2019-03-16 22:41 | Emergency (ER) | payer SELFPAY ==
[2019-03-16] MEDS ORDERED: ALBUTEROL 2.5 MG/3 ML NEB SOL ONE (23:38)
[2019-03-17 00:08] LABS: Urine Amorphous Sediment 4+ /HPF (NONE SEEN); Urine Bacteria 20-50 /HPF (<20); Urine Culture Reflex Order NOT NEEDED; Urine RBC <5 /HPF (NONE SEEN)
[2019-03-17 00:38] LABS: Urine Blood 1+ (NEG); Urine Glucose NEGATIVE (NEG); Urine Protein NEGATIVE (NEG); Urine Specific Gravity 1.025 (1.005-1.030)
--- NOTE | 2019-03-17 01:17 | EDPHYS ---
Physician Documentation [facility] Name: Evy Bahena Age: 23 yrs Sex: Female : 1995 Arrival Date: 03/16/2019 Time: 22:43 Bed 15 Private MD: ED Physician Bc Mcconnell HPI: 03/16 23:33 This 23 yrs old Female presents to ER via Ambulatory with complaints of Chest snw Pain. 23:33 The patient has shortness of breath at rest. Onset: The symptoms/episode began/occurred snw suddenly, today. Duration: The symptoms are continuous. Associated signs and symptoms: Pertinent positives: chest pain. Severity of symptoms: At their worst the symptoms were moderate in the emergency department the symptoms are unchanged. The patient has not experienced similar symptoms in the past. The patient has not recently seen a physician. 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 - Social history:: Smoking status: Patient uses tobacco products, denies chronic smoking, but will smoke occasionally, Patient uses alcohol, occasionally. Patient/guardian denies using street drugs. - Ebola Screening: : Patient negative for fever greater than or equal to 101.5 degrees Fahrenheit, and additional compatible Ebola Virus Disease symptoms Patient denies exposure to infectious person Patient denies travel to an Ebola-affected area in the 21 days before illness onset. ROS: 23:31 Constitutional: Negative for fever, chills, and weight loss, Eyes: Negative for injury, snw pain, redness, and discharge, ENT: Negative for injury, pain, and discharge, Neck: Negative for injury, pain, and swelling, Abdomen/GI: Negative for abdominal pain, nausea, vomiting, diarrhea, and constipation, Back: Negative for injury and pain, : Negative for injury, bleeding, discharge, and swelling, MS/Extremity: Negative for injury and deformity, Skin: Negative for injury, rash, and discoloration, Neuro: Negative for headache, weakness, numbness, tingling, and seizure. 23:31 Cardiovascular: Positive for chest pain, Negative for edema. 23:31 Respiratory: Positive for shortness of breath, Negative for cough. Exam: 23:31 Constitutional: This is a well developed, well nourished patient who is awake, alert, snw and in no acute distress. Head/Face: Normocephalic, atraumatic. Eyes: Pupils equal round and reactive to light, extra-ocular motions intact. Lids and lashes normal. Conjunctiva and sclera are non-icteric and not injected. Cornea within normal limits. Periorbital areas with no swelling, redness, or edema. ENT: Nares patent. No nasal discharge, no septal abnormalities noted. Tympanic membranes are normal and external auditory canals are clear. Oropharynx with no redness, swelling, or masses, exudates, or evidence of obstruction, uvula midline. Mucous membranes moist. Neck: Trachea midline, no thyromegaly or masses palpated, and no cervical lymphadenopathy. Supple, full range of motion without nuchal rigidity, or vertebral point tenderness. No Meningismus. Cardiovascular: Regular rate and rhythm with a normal S1 and S2. No gallops, murmurs, or rubs. Normal PMI, no JVD. No pulse deficits. Respiratory: Lungs have equal breath sounds bilaterally, clear to auscultation and percussion. No rales, rhonchi or wheezes noted. No increased work of breathing, no retractions or nasal flaring. Abdomen/GI: Soft, non-tender, with normal bowel sounds. No distension or tympany. No guarding or rebound. No evidence of tenderness throughout. Back: No spinal tenderness. No costovertebral tenderness. Full range of motion. Skin: Warm, dry with normal turgor. Normal color with no rashes, no lesions, and no evidence of cellulitis. MS/ Extremity: Pulses equal, no cyanosis. Neurovascular intact. Full, normal range of motion. Neuro: Awake and alert, GCS 15, oriented to person, place, time, and situation. Cranial nerves II-XII grossly intact. Motor strength 5/5 in all extremities. Sensory grossly intact. Cerebellar exam normal. Normal gait. Psych: Awake, alert, with orientation to person, place and time. Behavior, mood, and affect are within normal limits. 23:31 Chest/axilla: Inspection: normal, Palpation: tenderness, that partially reproduces the patient's complaints. Vital Signs: 22:50 BP 145 / 96; Pulse 80; Resp 16; Temp 98.6(O); Pulse Ox 100% on R/A; Weight 69.85 kg fc (R); Height 5 ft. 3 in. (160.02 cm) (R); Pain 8/; 03/17 00:15 BP 125 / 83; Pulse 69; Resp 18; Pulse Ox 100% on R/A; wh 02:02 BP 146 / 86; Pulse 69; Resp 18; Pulse Ox 99% on R/A; wh 03/16 22:50 Body Mass Index 27.28 (69.85 kg, 160.02 cm) fc MDM: 03/16 23:07 Patient medically screened. snw 23:32 Data reviewed: vital signs, nurses notes. Data interpreted: Pulse oximetry: on room air snw is 100 %. Interpretation: normal. Counseling: I had a detailed discussion with the patient and/or guardian regarding: the historical points, exam findings, and any diagnostic results supporting the discharge/admit diagnosis, lab results. ED course: spo2 100%, no control, travel, surgery, malignancy, lower ext edema. + occasional smoker. 03/17 01:18 Response to treatment: the patient's symptoms have mildly improved after treatment. snw 03/16 23:19 Order name: Urine Culture snw 03/16 23:19 Order name: Urine Microscopic Only; Complete Time: 00:15 snw 03/16 23:29 Order name: Chest Pa And Lat (2 Views) XRAY snw 03/16 23:51 Order name: Urine Dipstick--Ancillary (enter results); Complete Time: 00:40 ar5 03/16 23:51 Order name: Urine --Ancillary (enter results); Complete Time: 00:40 ar5 03/16 23:19 Order name: Urine Test (obtain specimen); Complete Time: 23:39 snw 03/16 23:19 Order name: Urine Dipstick-Ancillary (obtain specimen); Complete Time: 23:39 snw Administered Medications: 03/16 23:39 Drug: Albuterol 2.5 mg Route: Inhalation; 03/17 01:30 Drug: predniSONE 20 mg Route: PO; 02:04 Follow up: Response: No adverse reaction 01:30 Drug: Pepcid 20 mg Route: PO; 02:04 Follow up: Response: No adverse reaction Disposition: 03/17/19 01:16 Discharged to Home. Impression: Chest pain on breathing. - Condition is Stable. - Discharge Instructions: Acute Bronchitis, Adult, Nonspecific Chest Pain, Hypertension. - Prescriptions for Prednisone 20 mg Oral Tablet - take 2 tablet by ORAL route once daily for 5 days; 10 tablet. Albuterol Sulfate 90 mcg/actuation - inhale 1-2 puff by INHALATION route every 4-6 hours; 1 Inhaler. Pepcid 20 mg Oral Tablet - take 1 tablet by ORAL route once daily; 20 tablet. - Medication Reconciliation Form, Thank You Letter, Antibiotic Education, Prescription Opioid Use form. - Follow up: Private Physician; When: 2 - 3 days; Reason: Recheck today's complaints, Continuance of care, Re-evaluation by your physician. Follow up: Emergency Department; When: As needed; Reason: Worsening of condition. Addendum: 03/19/2019 08:30 Co-signature as Attending Physician, Bc Mcconnell MD I agree with the assessment and c pugh plan of care. Signatures: Dispatcher [employer] Bc Argueta MD MD cha Therrien, Shelly, JAVA SOFTWARE DEVELOPER-C JAVA SOFTWARE DEVELOPER-Csnw Edda Bonds RN RN Ritika Meier Corrections: (The following items were deleted from the chart) 03/17 02:05 01:16 03/17/2019 01:16 Discharged to Home. Impression: Chest pain on breathing. Condition is Stable. Forms are Medication Reconciliation Form, Thank You Letter, Antibiotic Education, Prescription Opioid Use. Follow up: Private Physician; When: 2 - 3 days; Reason: Recheck today's complaints, Continuance of care, Re-evaluation by your physician. Follow up: Emergency Department; When: As needed; Reason: Worsening of condition. snw
--- NOTE | 2019-03-17 01:17 | ER ---
Nurse's Notes [facility] Name: Evy Bahena Age: 23 yrs Sex: Female : 1995 Arrival Date: 03/16/2019 Time: 22:43 Bed 15 Private MD: Diagnosis: Chest pain on breathing Presentation: 03/16 22:50 Presenting complaint: Patient states: that she woke up this am at 0600 with chest pain. fc States that it is worse with deep breathing. States she feels as if she just cannot catch her breath. Transition of care: patient was not received from another setting of care. Onset of symptoms was March 16, 2019 at 06:00. Risk Assessment: Do you want to hurt yourself or someone else? Patient reports no desire to harm self or others. Initial Sepsis Screen: Does the patient meet any 2 criteria? No. Patient's initial sepsis screen is negative. Does the patient have a suspected source of infection? No. Patient's initial sepsis screen is negative. Care prior to arrival: None. 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 - Social history:: Smoking status: Patient uses tobacco products, denies chronic smoking, but will smoke occasionally, Patient uses alcohol, occasionally. Patient/guardian denies using street drugs. - Ebola Screening: : Patient negative for fever greater than or equal to 101.5 degrees Fahrenheit, and additional compatible Ebola Virus Disease symptoms Patient denies exposure to infectious person Patient denies travel to an Ebola-affected area in the 21 days before illness onset. Screenin:50 Abuse screen: Denies threats or abuse. Nutritional screening: No deficits noted. fc Tuberculosis screening: No symptoms or risk factors identified. Fall Risk None identified. Assessment: 23:00 Reassessment:. General: Appears in no apparent distress. Behavior is calm, cooperative, wh appropriate for age. Pain: Complains of pain in chest Pain does not radiate. Pain currently is 4 out of 10 on a pain scale. Quality of pain is described as aching, Pain began 1 day ago. Aggravated by breathing. Neuro: Level of Consciousness is awake, alert, obeys commands. Cardiovascular: Heart tones S1 S2. Respiratory: Airway is patent Respiratory effort is even, unlabored, Respiratory pattern is regular, symmetrical. GI: Abdomen is flat, non-distended. : No signs and/or symptoms were reported regarding the genitourinary system. EENT: No signs and/or symptoms were reported regarding the EENT system. Derm: Skin is intact, is healthy with good turgor, Skin is pink, warm \T\ dry. normal. Musculoskeletal: Circulation, motion, and sensation intact. 03/17 00:15 Reassessment: Patient appears in no apparent distress at this time. No changes from previously documented assessment. Patient and/or family updated on plan of care and expected duration. Pain level reassessed. Patient is alert, oriented x 3, equal unlabored respirations, skin warm/dry/pink. 01:59 Reassessment: Patient appears in no apparent distress at this time. No changes from previously documented assessment. Patient and/or family updated on plan of care and expected duration. Pain level reassessed. Patient is alert, oriented x 3, equal unlabored respirations, skin warm/dry/pink. Patient states feeling better. Patient states symptoms have improved. Vital Signs: 03/16 22:50 BP 145 / 96; Pulse 80; Resp 16; Temp 98.6(O); Pulse Ox 100% on R/A; Weight 69.85 kg fc (R); Height 5 ft. 3 in. (160.02 cm) (R); Pain 8/10; 03/17 00:15 BP 125 / 83; Pulse 69; Resp 18; Pulse Ox 100% on R/A; wh 02:02 BP 146 / 86; Pulse 69; Resp 18; Pulse Ox 99% on R/A; wh 03/16 22:50 Body Mass Index 27.28 (69.85 kg, 160.02 cm) ED Course: 03/16 22:43 Patient arrived in ED. ds1 22:45 Raquel Bo FNP-C [facility]. snw 22:45 Bc Mcconnell MD is Attending Physician. snw 22:50 Arm band placed on Patient placed in an exam room, on a stretcher. fc 22:50 Patient has correct armband on for positive identification. Placed in gown. Bed in low fc position. Call light in reach. cardiac monitor on. Pulse ox on. NIBP on. 22:50 No provider procedures requiring assistance completed. fc 23:00 Patient maintains SpO2 saturation greater than 95% on room air. 23:13 Triage completed. 23:23 Ritika Bates is Primary Nurse. 03/17 00:10 X-ray completed. Portable x-ray completed in exam room. Patient tolerated procedure 1 well. 00:13 Chest Pa And Lat (2 Views) XRAY In Process Unspecified. EDMS 02:04 Patient did not have IV access during this emergency room visit. Administered Medications: 03/16 23:39 Drug: Albuterol 2.5 mg Route: Inhalation; 03/17 01:30 Drug: predniSONE 20 mg Route: PO; 02:04 Follow up: Response: No adverse reaction 01:30 Drug: Pepcid 20 mg Route: PO; 02:04 Follow up: Response: No adverse reaction Outcome: 01:16 Discharge ordered by MD. snw 02:03 Discharged to home ambulatory, with family. 02:03 Condition: stable 02:03 Discharge instructions given to patient, family, Instructed on discharge instructions, follow up and referral plans. medication usage, POC Acute Bronchitis Demonstrated understanding of instructions, follow-up care, medications, POC Prescriptions given X 3. 02:05 Patient left the ED. Signatures: Dispatcher [employer] EDMO Raquel Bo, ASSISTANT KITCHEN MANAGER-C ASSISTANT KITCHEN MANAGER-Csnw Linette Vaca [facility] Edda Bonds, RN RN Jessica Andrade [facility] Ritika Bates
[2019-03-17] MEDS ORDERED: predniSONE 20 MG TAB ONE (01:23)
[2019-03-17] MEDS ORDERED: FAMOTIDINE 20 MG TAB ONE (01:24)
[2019-03-17 02:34] VITALS: TEMP 98.6
[2019-03-17 02:36] VITALS: BP 146/86; O2SAT 99
--- NOTE | 2019-03-17 08:58 | RAD REPORT ---
EXAM DESCRIPTION: RAD - Chest Pa And Lat (2 Views) - 03/17/2019 12:10 am CLINICAL HISTORY: CHEST PAIN COMPARISON: None. TECHNIQUE: PA and lateral views of the chest were obtained. FINDINGS: The lungs are clear. Heart size is normal and central vasculature is within normal limit s. No pleural effusion or pneumothorax seen. No acute bony finding noted. No aortic abnormality. IMPRESSION: No acute cardiopulmonary process.
== END 2019-03-17 02:05 | disposition home or self-care (01) ==
LOC: ER 22:41
DX: R07.1 Chest pain on breathing (principal); Z72.0 Tobacco use
CPT/HCPCS: 71046; 81003; 81015; 81025; 87077; 87086; 87088; 87186; 99285; J7512